=== PATIENT | female | born 1960 | race Caucasian/White ===

== ENCOUNTER → 2017-06-29 | Outpatient (CLI) | payer OTHER ==
[~2017-06-29] MED LIST: GLUC250C PO; PROB1CAP41 PO; SPECTAB; VITA400C15 PO
== END | disposition home or self-care (01) ==
LOC: C.PAPS 13:33
PROVIDERS: ATTEND Obstetrics & Gynecology
DX: Z12.4 Encounter for screening for malignant neoplasm of cervix (principal)